=== PATIENT | female | born 1935 | race Caucasian/White ===

== ENCOUNTER 2017-04-12 05:57 | Inpatient (IN) | payer OTHER ==
[~2017-04-12] VITALS: Ht 157.5 cm; Wt 82.6 kg
[~2017-04-12 05:57] MED LIST: ATENOLOL 25MG T25 MG PO; CLONAZEPAM 1 MG1 M1 PO; DOESN'T KNOW MEDS; GLUCOTROL10 MG; NORCO 7.5-3251 EACH PO; NORVASC 5 MG TAB5 MG PO
[2017-04-12 06:03] VITALS: BP 156/86
[2017-04-12] MEDS ORDERED: AMARYL4 MG PO (06:10)
[2017-04-12] MEDS ORDERED: TRAMADOL 50 MG50 MG PO (06:11)
[2017-04-12 06:20] LABS: ABSOLUTE BASOPHILS 0.1 thou/uL (0.0-0.2); ABSOLUTE EOSINOPHILS 0.3 thou/uL (0.0-0.7); ABSOLUTE LYMPHOCYTES 1.5 thou/uL (0.8-5.3); ABSOLUTE MONOCYTES 0.5 thou/uL (0.0-1.2); ABSOLUTE NEUTROPHILS 10.2 thou/uL (1.6-8.1); BASOPHILS 0.9 %; EOSINOPHILS 2.2 %; HEMATOCRIT 41.3 % (37.0-47.0); HEMOGLOBIN 13.3 gm/dL (12.0-15.0); LYMPHOCYTES 11.6 %; MCH 26.3 pg (26.0-34.0); MCHC 32.3 g/dL (28.0-37.0); MCV 81.5 fL (80.0-100.0); MONOCYTES 3.7 %; MPV 8.3 fl. (7.2-11.1); NUCLEATED RBCS 0 /100WBC; PLATELET COUNT* 301 thou/uL (150-400); POLYS 81.6 %; RBC 5.07 mil/uL (4.20-5.00); RDW-CV 13.6 % (10.5-14.5); WBC 12.5 thou/uL (4.0-11.0)
[2017-04-12 06:34] LABS: ANION GAP 7 mmol/L (7-16); BUN 12 mg/dL (7-18); CALCIUM 8.3 mg/dL (8.5-10.1); CHLORIDE 103 mmol/L (98-107); CO2 30 mmol/L (21-32); CREATININE 0.7 mg/dL (0.6-1.3); GLUCOSE 164 mg/dL (70-99); POTASSIUM 3.8 mmol/L (3.5-5.1); SODIUM 140 mmol/L (136-145)
[2017-04-12 06:37] LABS: APTT 26.3 Seconds (25.0-31.3)
[2017-04-12 06:52] LABS: ALBUMIN 3.4 g/dL (3.4-5.0); ALKALINE PHOSPHATASE 75 U/L (46-116); CK-MB MASS < 0.5 ng/mL (<0.5-3.6); LIPASE 69 U/L (73-393); MAGNESIUM 1.7 mg/dL (1.8-2.4); NT-PRO BRAIN NAT PEPTIDE 128 pg/mL (<300); SGOT 21 U/L (15-37); SGPT 34 U/L (30-65); TOTAL BILIRUBIN 0.5 mg/dL (<0.1-1.0); TOTAL PROTEIN 7.3 g/dL (6.4-8.2); TROPONIN-I LEVEL <0.06 ng/mL (<0.06)
[2017-04-12 09:20] VITALS: BP 142/49
--- NOTE | 2017-04-12 09:20 | NUR ---
PT ARRIVED ON THE FLOOR FROM ER. REPORT TAKEN FROM JILLIAN. ASSESSED PT AND DOCUMENTED. PT ON CARDIAC MONITER TRACING SR WITH PAC'S HR 85. PT IS ON ROOM AIR AND IS AFEBRILE. PT ORIENTATED TO ROOM AND TV. SCD'S ARE ON. PT HAS HAD A FLU SHOT THIS. AND 2 OF PTS 9 CHILDREN ARE AT BEDSIDE. PT DOES STATE SHE IS NERVOUS AND MEDICATION SHE HAS NOW IS NOT WORKING. PT IS FROM [facility] AND STATES ANXIETY BEGAN DURING THE WAR WHEN SHE SAW HER COUSIN SHOT. PT HAS BEEN HELPING WITH THE CARE OF HER YOUNGEST CHILD CHILD AND IS A NOTED CLEAR STRESS TO HER. PT IS A&O WITH NO C/O PAIN. BED IS IN LOW POSITION CALL LIGHT IS IN REACH. WM.
[2017-04-12 09:30] VITALS: BP 166/75
--- NOTE | 2017-04-12 11:27 | NUR ---
PT IS REFUSING BEDPAN. SHE STATES SHE IS CAPABLE OF WALKING TO THE BATHROOM. EDUCATION GIVEN.
[2017-04-12 12:13] VITALS: BP 149/81
--- NOTE | 2017-04-12 15:41 | EKG ---
[place] [address] ELECTROCARDIOGRAM REPORT Name: VIDAL MAZARIEGOS Room: [address] ADM IN R.#: [id number] Admission: 04/12/17 Attend Phys: Carlos Alberto Prado MD Discharge: Date of : 31 Report #: [id number] THIS REPORT FOR: //name// [facility] ED Test Date: 2017-04-12 Test Time: 06:02:18 Pat Name: VIDAL MAZARIEGOS Department: Room: [facility] Gender: F Vulcanizing Press Operator: GL : 1935 Requested By: Govind He Order Number: [id number] MD: Daniel Blake Measurements Intervals [place] Rate: 89 P: -12 NM: 144 QRS: -19 QRSD: 91 T: 38 QT: 371 QTc: 452 Interpretive Statements Sinus rhythm Atrial premature complex Inferior infarct, old Baseline wander in lead(s) I,III,aVR,aVL,V1 No previous ECG available for comparison Electronically Signed On 04-12-2017 15:41:05 SANDWICH MAKER by Daniel Blake [email or web address] <ELECTRONICALLY SIGNED> By: Daniel lBake MD, [facility] 04/12/17 1541 0602 0602 Daniel Blake MD, [facility] /EPI
--- NOTE | 2017-04-12 19:38 | CARDNUC ---
[place] [address] CARDIAC NUCLEAR IMAGING REPORT Name: VIDAL MAZARIEGOS Room: [address] IN [facility]#: [id number] Admission: 04/12/17 Attend Phys: Carlos Alberto Prado, Discharge: Date of : 31 Date of Service: 04/12/171937 Report #: [id number] THIS REPORT FOR: //name// APPROVED REPORT Exam: Nuclear Stress Test Patient Location: In-Patient Stress Nurse: Mara Ramirez RN BMI: 0 Stress Test Details Stress Test: Pharmacologic stress testing performed using 0.4 mg of regadenoson per 5 mL given IV over 10 seconds. HR Resting HR: 87 bpm Max Heart Rate (APMHR): 137 bpm Max HR Achieved: 121 bpm Target HR (85% APMHR): 116 bpm % of APMHR: 88 Recovery HR: 102 bpm BP Resting BP: 141/78 mmHg Max BP: 190/86 mmHg ECG Resting ECG: Sinus Rhythm, normal EKG Stress ECG: Sinus Tachycardia ST Change: None Arrhythmia: None Recovery ECG: Sinus Rhythm Recovery ST Change: None Recovery Arrhythmia: None Clinical The patient had no significant symptoms with Lexiscan infusion. Stress ECG Conclusion The baseline 12-lead electrocardiogram showed normal sinus rhythm with no significant ST or T wave abnormality. EKGs obtained during and post Lexiscan infusion showed sinus rhythm and sinus tachycardia with no significant ST or T wave changes when compared to baseline. There were no stress[place] [address] CARDIAC NUCLEAR IMAGING REPORT Name: VIDAL MAZARIEGOS Room: [address]#: [id number] Admission: 04/12/17 Attend Phys: Carlos Alberto Prado, Discharge: Date of : 31 Date of Service: 04/12/17 1938 Report #: [id number] NM EXAM: Myocardial Perfusion REST/STRESS Imaging Protocol: Stress Tc-99m/Rest Tc-99m 2 days Pharmacologic Stress Pharmacologic stress test was performed by injecting Regadenoson 0.4 mg IV push followed by the intravenous injection of 36.4 mCi of Tc-99m Sestamibi. Time of stress injection: 164 Date: 04/12/2017 Time of stress imagin Date: 04/12/2017 Administration Route: IV Administration Site: Left AC Heart Rate at time of stress injection: 121 bpm. Gated Stress SPECT was performed 40 minutes after stress injection. The images were gated to evaluate regional wall motion and calculate left ventricular ejection fraction. Prone imaging was performed. Study Quality Study: Good Artifact: No artifact Study Data Post stress, the left ventricular ejection was 69%.. Perfusion Post stress myocardial perfusion images show uniform uptake of the radioisotope throughout the myocardium without defect. Wall Motion Normal left ventricular wall motion. Nuclear Conclusion ECG Findings: negative for ischemia Clinical Findings: negative for ischemia Nuclear Findings: negative for ischemia Exercise Capacity: not assessed Left Ventricular Function: normal Risk Study: low Post stress perfusion images show no defect to suggest infarct or ischemia. Left particular systolic function appears normal on gated images. This is a low risk study. <Conclusion> The baseline 12-lead electrocardiogram showed [place] [address] CARDIAC NUCLEAR IMAGING REPORT Name: VIDAL MAZARIEGOS Room: [address] IN [facility]#: [id number] Admission: 04/12/17 Attend Phys: Carlos Alberto Prado, Discharge: Date of : 31 Date of Service: 04/12/171937 Report #: [id number] with no significant ST or T wave abnormality. EKGs obtained during and post Lexiscan infusion showed sinus rhythm and sinus tachycardia with no significant ST or T wave changes when compared to baseline. There were no stress-induced arrhythmias. <ELECTRONICALLY SIGNED> By: Jacob Coffman MD, [facility] 04/12/171937 37 37 Jacob Coffman MD, FACC /INF
[2017-04-12 20:00] VITALS: BP 148/83
--- NOTE | 2017-04-12 21:00 | NUR ---
RECIEVED REPORT AND ASSUMED CARE OF PATIENT AT 1930. CLINICAL PHLEBOTOMIST IN PLACE TRACING SR. ASSESSMENT AND VITALS COMPLETED CHARTED VSS. PATIENT A&OX4. PATIENT ON ROOM AIR. DENIES CHEST PAIN OR DISCOMFORT. PATIENT GOAL IS TO REMAIN FREE OF CHEST PAIN. CALL LIGHT WITHIN REACH
[2017-04-13] VITALS (14 sets, daily range): BP systolic 112–155; BP diastolic 58–76
[2017-04-13 05:08] LABS: ABSOLUTE EOSINOPHILS 0.2 thou/uL (0.0-0.7); ABSOLUTE LYMPHOCYTES 1.7 thou/uL (0.8-5.3); ABSOLUTE MONOCYTES 0.6 thou/uL (0.0-1.2); ABSOLUTE NEUTROPHILS 4.6 thou/uL (1.6-8.1); BASOPHILS 0.6 %; EOSINOPHILS 2.4 %; HEMATOCRIT 39.8 % (37.0-47.0); HEMOGLOBIN 12.9 gm/dL (12.0-15.0); LYMPHOCYTES 24.1 %; MCH 26.3 pg (26.0-34.0); MCHC 32.4 g/dL (28.0-37.0); MCV 81.2 fL (80.0-100.0); MONOCYTES 8.1 %; MPV 8.5 fl. (7.2-11.1); NUCLEATED RBCS 0 /100WBC; PLATELET COUNT* 270 thou/uL (150-400); POLYS 64.8 %; RDW-CV 13.8 % (10.5-14.5); WBC 7.1 thou/uL (4.0-11.0)
--- NOTE | 2017-04-13 05:36 | NUR ---
PATIENT PROGRESSING TOWARDS GOALS: STRESS TEST RESULTS CAME BACK SHOWING NO ISCHEMIA. PATIENT DENIES CHEST PAIN THROUGHOUT SHIFT AND REMAINS ON ROOM AIR WITH SATS >92%. HOURLY ROUNDING OBSERVED. CALL LIGHT WITHIN REACH
[2017-04-13 05:37] LABS: CALCIUM 8.4 mg/dL (8.5-10.1); CREATININE 0.7 mg/dL (0.6-1.3); MAGNESIUM 1.9 mg/dL (1.8-2.4); POTASSIUM 3.7 mmol/L (3.5-5.1)
--- NOTE | 2017-04-13 08:30 | NUR ---
ASSUMED CARE OF PT THIS AM AROUND 0715- CONVEYOR MAN IN PLACE ORDERED, TRACING SR- UPON ASSESSMENT PT NOTED TO BE SITTING UP IN BED, WATCHING TV- PT A&O X4- CONTINENT OF BOWEL AND BLADDER- UP AD-LADARIUS WITH STEADY GAIT NOTED- LCTA, RESP EVEN AND UN-LABORED- VSS, O2 SAT 92% ON RA- ABDOMEN SOFT/ROUND/NON-TENDER, BS X4 QUADS- PT REPORTS LAST BM 04/12/17- IV NOTED TO LEFT AC INTACT AND SL- BS MONITORED ORDERED- PT DENIES ANY C/O PAIN/DISCOMFORT AT THIS TIME- UP WALKING HALLS THIS AM, TOLERATING WELL- CALL LIGHT AND PERSONAL BELONGINGS WITH IN REACH- HOURLY ROUNDS IN PLACE R/T SAFETY/NEEDS- ALL NEEDS MET AT THIS TIME-WCTM
[2017-04-13] MEDS ORDERED: ASPIRIN325 PO (09:34)
[2017-04-13 12:05] LABS: INR 1.1; PROTIME 10.7 Seconds (9.20-11.50)
[2017-04-13 12:16] LABS: CHOLESTEROL 159 mg/dL (<200); HDL CHOLESTEROL 43 mg/dL (>40); LDL CHOLESTEROL 97 mg/dL (<100); TC:HDL 3.7 Ratio (Not establshd); TRIGLYCERIDE 96 mg/dL (<150); VLDL 19 mg/dL (<40)
[2017-04-13 12:17] LABS: SERUM ASSESSMENT Clear
--- NOTE | 2017-04-13 15:30 | NUR ---
pt out of the room at produce laborer, cm to assess later
--- NOTE | 2017-04-13 18:25 | NUR ---
PT RAFAEL RESTING IN BED, FAMILY AT SIDE VISITING- CLOTH PACKER IN PLACE ORDERED, TRACING SR- IV TO LEFT AC INTACT AND INFUSING WITH IVF PRESCRIBED AT THIS TIME- CARDIAC CATH COMPLETED THIS SHIFT ORDERED, ACCESS NOTED TO RIGHT WRIST- 1 STENT REPORTED TO HAVE BEEN PLACED TO LAD- DIAZEPAM GIVEN PRIOR TO PROCEDURE THIS SHIFT AT 1452 R/T ANXIETY- VS IN PLACE POST PROCEDURE ORDERED-VASC RADIAL CLOSURE IN PLACE, PRESSURE DECREASED ORDERED- PT DENIES ANY PAIN- CAP REFIL < 3- LIPID PROFILE COMPLETED THIS SHIFT ORDERED- BS MONIOTRED ORDERED, GOOD PO ITNAKE NOTED THIS SHIFT WITH DINNER- PT DENIES ANY PAIN/DISOCMFORT AT THIS TIME- CALL LIGHT AND PERSONAL BELONGINGS WITH IN REACH- ALL NEEDS MET AT THIS TIME-WCTM
[2017-04-14] VITALS (8 sets, daily range): BP systolic 122–133; BP diastolic 53–77
[2017-04-14 04:30] LABS: HEMOGLOBIN 12.2 gm/dL (12.0-15.0); MCHC 32.1 g/dL (28.0-37.0); MPV 8.4 fl. (7.2-11.1); RBC 4.69 mil/uL (4.20-5.00); RDW-CV 13.8 % (10.5-14.5); WBC 8.1 thou/uL (4.0-11.0)
[2017-04-14 04:52] LABS: CREATININE 0.7 mg/dL (0.6-1.3); POTASSIUM 3.9 mmol/L (3.5-5.1)
[2017-04-14 04:54] LABS: TROPONIN-I LEVEL 0.64 ng/mL (<0.06)
--- NOTE | 2017-04-14 06:18 | NUR ---
PATIENT REMAINS STABLE THROUGHOUT SHIFT. PATIENT PROGRESSING TOWARDS DISCHARGE: NO REPORTS OF CHEST PAIN THIS SHIFT. RIGHT RADIAL CATH SITE WITH GAUZE AND TEGADERM IN PLACE, C/D/I. PATIENT STATES SHE SLEPT "GREAT LAST NIGHT." HOURLY ROUNDING OSBERVED. CALL LIGHT WITHIN REACH
[2017-04-14] MEDS ORDERED: ASPIR 8181 MG PO (10:47)
[2017-04-14] MEDS ORDERED: NITROGLYCERIN0.4 MG SUBLING (10:49)
[2017-04-14] MEDS ORDERED: BRILINTA90 MG PO (10:59)
[2017-04-14] MEDS ORDERED: LIPITOR 20 MG T20 M1 PO (11:04)
--- NOTE | 2017-04-14 12:00 | NUR ---
ASSUMED CARE OF PT THIS AM ASSESSED AND DOCUMENTED. PT TRACING SR ON CARDIAC MONITER HR 68. SHE IS A&O WITH NO C/O PAIN. VSS WNL. PT D/C'D TO HOME. ALL DRS OK WITH D/C. EDUCATION GIVEN RE: FOLLOW-UPS, MEDICATIONS, AND DRS ORDERS. SCRIPTS GIVEN. ALL BELONGINGS PACKED UP AND LEFT WITH PT ACCOMPANIED BY STAFF AND FAMILY. IV AND CARDIAC MONITER D/C'D.
--- NOTE | 2017-04-14 13:10 | CON ---
[address] [address] CONSULTATION Name: VIDAL MAZARIEGOS Room: [address] IN [facility]#: [id number] Admission: 04/12/17 Attend Phys: Carlos Alberto Prado MD Discharge: 04/14/17 Date of : 31 Report #: [id number] THIS REPORT FOR: //name// CC: Carlos Alberto Prado Lorrie Elwin DATE OF SERVICE: 04/12/2017 PATIENT OF: Carlos Alberto Prado MD HISTORY OF PRESENT ILLNESS: The patient is a very pleasant 81-year-old female. For the last week, she has noted nocturnal episodes of squeezing or central chest discomfort with aching in both arms. These typically last a few minutes and are relieved by aspirin. She has had no protracted pain. She denies associated nausea or diaphoresis. There is no history of prior pain of this kind and no history of antecedent myocardial infarction. She does have a number of risk factors for coronary disease including a positive family history of coronary artery disease in her father at 80, hypertension and type 2 diabetes. She denies cigarette smoking, hypercholesterolemia or known peripheral vascular disease. She remains very active for her advanced age and denies dyspnea or palpitations with activity. PAST MEDICAL HISTORY: Remarkable for hypertension, diabetes, family history of coronary artery disease and prior resection of a mass from her neck. FAMILY HISTORY: Remarkable for father with coronary artery disease at 80. SOCIAL HISTORY: She is . She is a nonsmoker. REVIEW OF SYSTEMS: Remarkable for the following positives. GENERAL: She notes moderate chronic weight excess. ENDOCRINE: Has a history of type 2 diabetes treated with oral agents. MUSCULOSKELETAL: She notes mild chronic arthritic complaints. CARDIAC: She described the aforementioned chest discomfort with associated arm pain. Remainder of 13-point review of systems is unremarkable. PHYSICAL EXAMINATION: CARDIOVASCULAR: Reveals a moderately overweight elderly female with a Micronesian-Peruvian accent. VITAL SIGNS: Blood pressure 150/70, pulse rate is 75 and respirations are 18 per minute. NECK: Jugular venous pressure is normal. Carotids are 1-2+. There is no scleral icterus. [place] [address] CONSULTATION Name: VIDAL MAZARIEGOS Room: [address]#: [id number] Admission: 04/12/17 Attend Phys: Carlos Alberto Prado MD Discharge: 04/14/17 Date of : 31 Report #: [id number] CHEST: Clear. CARDIAC: Reveals normal first and second heart sounds with a soft systolic murmur without rubs or gallops. ABDOMEN: Moderately obese. EXTREMITIES: Without edema with intact femoral, pedal and radial pulses. There are no deformity or arthritic changes. No petechia or ecchymosis are noted. LABORATORY DATA: EKG reveals a sinus rhythm with rare PACs and minor nonspecific ST-T alterations are noted. LABORATORY DATA: Remarkable for hemoglobin of 13.3, white blood cell count of 12,500 with 301,000 platelets. Sodium 140, potassium 3.8, BUN 12 and creatinine 0.7. Troponin I 0.06, 0.06, 0.06, less than that. NT-BNP 128. Lipase 68. Protime 10.0, INR 1.0 and PTT 26.3. D-dimer 1.68. Chest x-ray reveals basilar atelectasis, but no evidence for heart failure. CT angio revealed no evidence for pulmonary emboli or dissection. IMPRESSION: 1. Episodes of squeezing central chest pain with achiness in both arms, strongly suggestive of angina occurring at rest and now it is reflecting an unstable pattern. 2. Hypertension. 3. Type 2 diabetes. 4. Moderate weight excess. 5. Positive family history of premature coronary artery disease. RECOMMENDATIONS: 1. Given the aforementioned clinical scenario, I concur with the plan to proceed with a Lexiscan Cardiolite testing as scheduled. 2. I will review that study, but I am strongly considering proceeding with cardiac catheterization given the clinical history as iterated above. This has been discussed with the patient and family. <ELECTRONICALLY SIGNED> By: Daniel Blake MD, FACC 04/14/17 1310 1513 0043Daniel Blake MD, FACC /nt
--- NOTE | 2017-04-14 13:43 | CARD ---
[address] [address] CARDIAC CATH REPORT Name: VIDAL MAZARIEGOS Room: [address] IN [facility]#: [id number] Admission: 04/12/17 Attend Phys: Carlos Alberto Prado MD Discharge: 04/14/17 Date of : 33 Report #: [id number] THIS REPORT FOR: //name// APPROVED REPORT Patient Details Patient Status: IN Room #: 221 The patient is a 81 year-old female Event Personnel Jacob Coffman Warp Dyeing Vat Tender, Patito New Monitor, Cale Duran Kephas, Sara RN Dock Builder, Daniel Blake Contact Center Analyst, Anai Ye RN Dock Builder Procedures Performed Art Access - R radial artery , Left Heart Catheterization, Selective Right and Left Coronary Angiography, Left Ventriculogram, PTCA with Stenting Indication Unstable angina Risk Factors Family History, Hypercholesterolemia, Hypertension Admission/Lab Medications/Medications given during procedure Aspirin, Platelet Aff. Inhib. Procedure Narrative The patient was brought electively to the Cardiac Catheterization Laboratory and was prepped and draped in a sterile manner. The right wrist was infiltrated with 2% Lidocaine subcutaneous anesthesia. A Slender Glidesheath sheath was inserted into the right radial artery. Coronary angiography was performed using coronary diagnostic catheters. The right coronary system was accessed and visualized with a 3DRC 5fr catheter. The left coronary system was accessed and visualized with a DCR: [place] 4.0 5fr catheter. The left ventricle was accessed and visualized with a PC: Angled Pig 5fr catheter. Left ventricular/Aortic Valve gradient assessed via catheter pullback. Left ventriculogram was performed in MARCANO projection. Closure device was deployed with a Fr Vasc-Band Reg 24cm. The patient tolerated the procedure well and there were no complications [place] [address] CARDIAC CATH REPORT Name: VIDAL MAZARIEGOS Room: [address]#: [id number] Admission: 04/12/17 Attend Phys: Carlos Alberto Prado MD Discharge: 04/14/17 Date of : 31 Report #: [id number] Intraoperative Conscious Sedation Sedation start time: 15:19 Case end Time: 16:29 Fentanyl 25 mcg Versed 1 mg Fluoro Time: 20.2 minutes Dose: DAP 129379 cGycm2 3649.72 mGy Contrast Type and Amount: Visipaque 545 ml Diagnostic Cath Left Main 0% narrowing LAD 80-90 % tubular proximal LAD stenosis with 50% mid LAD narrowing Circumflex Prominent though nondominant vessel with 30% proximal narrowing Right Coronary Dominant vessel with 0% narrowing Hemodynamics The aortic pressure is 131/65 mmHg with a mean of mmHg. The left ventricular pressure is 144/6 mmHg with a mean of mmHg. The left ventricular end diastolic pressure is 16 mmHg. There was no gradient across the aortic valve upon pullback. PCI Technique Lesion Anticoagulation was achieved with Angiomax. Percutaneous coronary intervention was performed on the proximal left anterior descending artery segment. The lesion stenosis prior to intervention was 80% with MATI 3 flow. A 6F XB LAD 3.5 Guide Catheter was used to engage the LCA ostium. A IG: ProwaterFlex 180CM Interventional Guidewire was used to cross the lesion. BALLOON DILATION A Balloon catheter Trek RX 2.25 X 12 was inserted and inflated up to 12.00atm for 11seconds. STENT DEPLOYMENT A drug-eluting stent Xience Alpine RX 2.5X15 was inserted and inflated up to 8atm for 10seconds. Additional Inflation: 10.00atm for 9seconds. Additional Inflation: 11.00atm for 10seconds. POST STENT DEPLOYMENT BALLOON DILATION A Balloon catheter NC Euphora 2.5x8 was inserted and inflated up to 15.00atm for 11seconds. Additional Inflation: 17.00atm for 5seconds. Additional Inflation: 18.00atm for 9seconds. 5 SEC @ 12ATM Final angiography reveals 0 % stenosis with MATI 3 [place] [address] CARDIAC CATH REPORT Name: VIDAL MAZARIEGOS Room: [address] IN [facility]#: [id number] Admission: 04/12/17 Attend Phys: Carlos Alberto Prado MD Discharge: 04/14/17 Date of : 31 Report #: [id number] flow. COMMENTS Complex lesion by virtue of its ostial location and a bifurcation lesion involving one limb of the proximal LAD and proximal circumflex bifurcation Conclusion #1 coronary artery disease characterized by the following: A 90% tubular proximal LAD narrowing with 50% mid LAD narrowing, B 30% narrowing of the proximal portion of the prominent though nondominant circumflex, C dominant right coronary artery which appeared normal #2 normal left ventricular systolic function, estimated ejection fragment being 65%, #3 mild elevation of left ventricular end-diastolic pressure at rest, #4 successful percutaneous coronary intervention with deployment of drug-eluting stent at the site of 90% tubular proximal LAD stenosis with 0% residual following stent deployment and MATI-3 flow the distal vessel. Recommendations Cardiac Rehabilitation Referral Cardiac Risk Reduction Program Aggressive Medical Therapy Medications Administered Aspirin (any) Ticagrelor Diagnostic Cath Approved by: Jacob Coffman MD Date/Time: 04/15/2017 <ELECTRONICALLY SIGNED> By: Daniel Blake MD, [facility] 04/14/17 1342 134 1342Daniel Blake MD, FAC /INF
--- NOTE | 2017-04-14 17:53 | EKG ---
[place] [address] ELECTROCARDIOGRAM REPORT Name: VIDAL MAZARIEGOS Room: [address] DIS IN .R.#: [id number] Admission: 04/12/17 Attend Phys: Carlos Alberto Prado MD Discharge: 04/14/17 Date of : 31 Report #: [id number] THIS REPORT FOR: //name// [facility] Test Date: 2017-04-13 Test Time: 17:18:22 Pat Name: VIDAL MAZARIEGOS Department: Room: [address] Gender: F Chief Projectionist: : 1935 Requested By: Daniel Blake Order Number: [id number] MD: Jacob Coffman Measurements Intervals [place] Rate: 68 P: 11 SD: 163 QRS: -19 QRSD: 103 T: -2 QT: 424 QTc: 451 Interpretive Statements Sinus rhythm Inferior infarct, old Delayed R-wave progression Compared to ECG 04/12/2017 06:02:18 Atrial premature complex(es) no longer present Myocardial infarct finding still present Electronically Signed On 04-14-2017 17:52:58 SUPPLY CHAIN ASSOCIATE by Jacob Coffman [email or web address] <ELECTRONICALLY SIGNED> By: Jacob Coffman MD, FACC 04/14/17 1752 1718 1718 Jacob Coffman MD, FAC /EPI
--- NOTE | 2017-04-14 17:57 | EKG ---
[place] [address] ELECTROCARDIOGRAM REPORT Name: VIDAL MAZARIEGOS Room: [address] DIS [place] .R.#: [id number] Admission: 04/12/17 Attend Phys: Carlos Alberto Prado MD Discharge: 04/14/17 Date of : 31 Report #: [id number] THIS REPORT FOR: //name// [facility] Test Date: 2017-04-14 Test Time: 03:49:25 Pat Name: VIDAL MAZARIEGOS Department: Room: [address] Gender: F Cinder Block Maker: PATO : 1935 Requested By: Daniel Blake Order Number: [id number] MD: Jacob Coffman Measurements Intervals [place] Rate: 61 P: -3 [place]: 149 QRS: -12 QRSD: 97 T: 28 QT: 430 QTc: 433 Interpretive Statements Sinus rhythm Inferior infarct, old Compared to ECG 04/12/2017 06:02:18 Atrial premature complex(es) no longer present Myocardial infarct finding still present Electronically Signed On 04-14-2017 17:56:58 VEHICLE DETAILER by Jacob Coffman [email or web address] <ELECTRONICALLY SIGNED> By: Jacob Coffman MD, FACC 04/14/17 1756 0349 0349 Jacob Coffman MD, FAC /EPI
== END 2017-04-14 12:05 | disposition home or self-care (01) | DRG 247 ==
LOC: M.ERS 05:57 → M.TBA-ER 08:03 → M.2W 08:03
PROVIDERS: Family Medicine; Internal Medicine; ADMIT Internal Medicine
PROC: 4A023N7 Measurement of Cardiac Sampling and Pressure, Left Heart, Percutaneous Approach (ICD-10-PCS; principal; 2017-04-14)
PROC: 027034Z Dilation of Coronary Artery, One Artery with Drug-eluting Intraluminal Device, Percutaneous Approach (ICD-10-PCS; 2017-04-14)
PROC: B2111ZZ Fluoroscopy of Multiple Coronary Arteries using Low Osmolar Contrast (ICD-10-PCS; 2017-04-14)
PROC: B2151ZZ Fluoroscopy of Left Heart using Low Osmolar Contrast (ICD-10-PCS; 2017-04-14)
DX: I25.110 Atherosclerotic heart disease of native coronary artery with unstable angina pectoris (principal); E11.9 Type 2 diabetes mellitus without complications; E78.5 Hyperlipidemia, unspecified; F41.9 Anxiety disorder, unspecified; I10 Essential (primary) hypertension; R91.1 Solitary pulmonary nodule; Z82.49 Family history of ischemic heart disease and other diseases of the circulatory system; Z79.899 Other long term (current) drug therapy

== ENCOUNTER 2019-10-29 07:36 | Emergency (ER) | payer MEDICARE ==
[~2019-10-29] VITALS: Ht 157.5 cm; Wt 82.6 kg
[~2019-10-29 07:36] MED LIST changes: +AMARYL4 MG PO; +ASPIR 8181 MG PO; +ASPIRIN325 PO; +BRILINTA90 MG PO; +LIPITOR 20 MG T20 M1 PO; +NITROGLYCERIN0.4 MG SUBLING; +TRAMADOL 50 MG50 MG PO
[2019-10-29] MEDS ORDERED: PLAVIX 75 MG TA75 MG PO (07:49)
[2019-10-29] MEDS ORDERED: HYDROCHLOROTHIA25 M2 PO (07:49)
[2019-10-29] MEDS ORDERED: PRANDIN1 MG PO (07:50)
[2019-10-29] MEDS ORDERED: GLIMEPIRIDE4 MG PO (07:50)
[2019-10-29] MEDS ORDERED: NORVASC 2.5 MG2.5 M1 PO (07:51)
[2019-10-29 08:27] LABS: ABSOLUTE BASOPHILS 0.1 thou/uL (0.0-0.2); ABSOLUTE EOSINOPHILS 0.2 thou/uL (0.0-0.7); ABSOLUTE LYMPHOCYTES 1.8 thou/uL (0.8-5.3); ABSOLUTE MONOCYTES 0.5 thou/uL (0.0-1.2); ABSOLUTE NEUTROPHILS 5.3 thou/uL (1.6-8.1); EOSINOPHILS 2.5 %; HEMATOCRIT 39.5 % (37.0-47.0); HEMOGLOBIN 13.2 gm/dL (12.0-15.0); LYMPHOCYTES 22.8 %; MCH 27.2 pg (26.0-34.0); MCHC 33.5 g/dL (28.0-37.0); MCV 81.2 fL (80.0-100.0); MONOCYTES 6.9 %; MPV 8.9 fl. (7.2-11.1); NUCLEATED RBCS 0 /100WBC; PLATELET COUNT* 220 thou/uL (150-400); POLYS 66.8 %; RBC 4.86 mil/uL (4.20-5.00); RDW-CV 14.5 % (10.5-14.5); WBC 7.9 thou/uL (4.0-11.0)
[2019-10-29 08:43] LABS: CALCIUM 8.6 mg/dL (8.5-10.1); CREATININE 0.7 mg/dL (0.6-1.3); POTASSIUM 3.2 mmol/L (3.5-5.1)
[2019-10-29 09:00] LABS: ALBUMIN 3.9 g/dL (3.4-5.0); MAGNESIUM 1.8 mg/dL (1.8-2.4); TOTAL BILIRUBIN 0.7 mg/dL (<0.1-1.0); TOTAL PROTEIN 6.7 g/dL (6.4-8.2)
[2019-10-29 09:39] LABS: URINE BILIRUBIN NEGATIVE (Negative); URINE BLOOD TRACE (Negative); URINE CLARITY CLEAR; URINE COLOR YELLOW; URINE GLUCOSE-RANDOM NEGATIVE (Negative); URINE KETONES TRACE (Negative); URINE LEUKOCYTES-REFLEX TRACE (Negative); URINE NITRITE-REFLEX NEGATIVE (Negative); URINE PROTEIN NEGATIVE (Negative); URINE SPECIFIC GRAVITY 1.015 (1.005-1.030); URINE UROBILINOGEN 0.2 E.U./dl (0.2-1.0)
[2019-10-29 09:46] LABS: SQUAMOUS 0-3 Few /LPF (0-3)
[2019-10-29 09:47] LABS: BACTERIA-REFLEX 1-9 Few /HPF (None Seen); CASTS None Seen /LPF (None Seen); CRYSTALS None Seen /LPF (None Seen); MUCUS 0-3 Light strn/LPF (None Seen); URINE RBC 3-10 Few /HPF (0-2); URINE WBC-REFLEX 0-5 Rare /HPF (0-5)
[2019-10-29] MEDS ORDERED: KLONOPIN1 MG PO (10:55)
[2019-10-29] MEDS ORDERED: KEFLEX500 M1 PO ×2 (10:55→10:58)
[2019-10-29] MEDS ORDERED: CLONAZEPAM 0.50.5 M1 PO (10:58)
[2019-10-29 11:20] VITALS: BP 148/71
--- NOTE | 2019-10-30 15:35 | EKG ---
[place] [address] ELECTROCARDIOGRAM REPORT Name: DELILAHVIDAL A Room: [facility]#: [id number] Admission: 10/29/19 Attend Phys: Discharge: 10/29/19 Date of : 31 Date of Service: 10/29/19 0844 Report #: [id number] THIS REPORT FOR: //name// [facility] ED Test Date: 2019-10-29 Test Time: 08:44:15 Pat Name: VIDAL MAZARIEGOS Department: Room: Gender: Video Conference Specialist: : 1935 Requested By: Simón Palma Order Number: [id number] MD: Daniel Blake Measurements Intervals [place] Rate: 60 P: -8 SD: 152 QRS: -10 QRSD: 98 T: 36 QT: 429 QTc: 429 Interpretive Statements Sinus rhythm Low voltage, precordial leads Compared to ECG 04/14/2017 03:49:25 Low QRS voltage now present Myocardial infarct finding no longer present Electronically Signed On 10-30-2019 15:35:33 CDT by Daniel Blake [email or web address] <ELECTRONICALLY SIGNED> By: Daniel Blake MD, [facility] 10/30/19 1535 0844 0844 aDniel Blake MD, [facility] /EPI
== END 2019-10-29 11:20 | disposition home or self-care (01) ==
LOC: M.ERS 07:36
PROVIDERS: Emergency Medicine Emergency Medical Services
DX: F41.0 Panic disorder [episodic paroxysmal anxiety] (principal); N39.0 Urinary tract infection, site not specified; M54.2 Cervicalgia; E11.9 Type 2 diabetes mellitus without complications; I10 Essential (primary) hypertension